=== PATIENT | female | born 1950 | race Caucasian/White ===

== ENCOUNTER 2020-09-03 23:36 | Emergency (ER) | payer MEDICARE ==
[~2020-09-03] VITALS: Ht 154.9 cm; Wt 93.9 kg
[2020-09-04] MEDS ORDERED: LEVO-T75 MCG PO (00:11)
[2020-09-04] MEDS ORDERED: ADVAIR 250-501 EACH INH (00:11)
[2020-09-04] MEDS ORDERED: INTERMEZZO3.5 MG PO (00:11)
[2020-09-04] MEDS ORDERED: OXYBUTYNIN 5 MG5 M2 PO (00:11)
[2020-09-04] MEDS ORDERED: PROAIR HFA8.5 GM INH (00:12)
[2020-09-04] MEDS ORDERED: VENLAFAXINE HCL25 MG PO (00:13)
[2020-09-04 00:34] LABS: URINE BILIRUBIN NEGATIVE (Negative); URINE BLOOD 1+ (Negative); URINE CLARITY CLEAR; URINE COLOR YELLOW; URINE GLUCOSE-RANDOM NEGATIVE (Negative); URINE KETONES NEGATIVE (Negative); URINE LEUKOCYTES-REFLEX NEGATIVE (Negative); URINE NITRITE-REFLEX NEGATIVE (Negative); URINE PROTEIN NEGATIVE (Negative); URINE UROBILINOGEN 0.2 E.U./dl (0.2-1.0)
[2020-09-04 00:51] LABS: ABSOLUTE BASOPHILS 0.1 thou/uL (0.0-0.2); ABSOLUTE EOSINOPHILS 0.4 thou/uL (0.0-0.7); ABSOLUTE LYMPHOCYTES 2.8 thou/uL (0.8-5.3); ABSOLUTE MONOCYTES 0.8 thou/uL (0.0-1.2); ABSOLUTE NEUTROPHILS 8.7 thou/uL (1.6-8.1); EOSINOPHILS 3.4 %; HEMATOCRIT 40.9 % (37.0-47.0); HEMOGLOBIN 13.3 gm/dL (12.0-15.0); LYMPHOCYTES 21.6 %; MCHC 32.5 g/dL (28.0-37.0); MCV 95.5 fL (80.0-100.0); MONOCYTES 6.1 %; MPV 7.5 fl. (7.2-11.1); NUCLEATED RBCS 0 /100WBC; PLATELET COUNT* 246 thou/uL (150-400); POLYS 67.9 %; RBC 4.28 mil/uL (4.20-5.00); RDW-CV 13.5 % (10.5-14.5); WBC 12.8 thou/uL (4.0-11.0)
[2020-09-04 00:53] LABS: CALCIUM 8.2 mg/dL (8.5-10.1); CREATININE 1.3 mg/dL (0.6-1.3); POTASSIUM 4.2 mmol/L (3.5-5.1)
[2020-09-04 00:58] LABS: ALBUMIN 3.4 g/dL (3.4-5.0); TOTAL BILIRUBIN 0.2 mg/dL (<0.1-1.0); TOTAL PROTEIN 6.8 g/dL (6.4-8.2)
[2020-09-04 01:49] LABS: CASTS None Seen /LPF (None Seen); SQUAMOUS >10 Many /LPF (0-3)
[2020-09-04 01:50] LABS: CRYSTALS None Seen /LPF (None Seen); URINE RBC None Seen /HPF (0-2); URINE WBC-REFLEX 0-5 Rare /HPF (0-5)
[2020-09-04] MEDS ORDERED: BACLOFEN 10MG T10 MG PO (04:13)
[2020-09-04] MEDS ORDERED: HYDROCODON-ACE1 EAC8 PO (04:13)
[2020-09-04 04:20] VITALS: BP 124/72
== END 2020-09-04 04:20 | disposition home or self-care (01) ==
LOC: M.ERS 23:36
PROVIDERS: Emergency Medicine
DX: M54.6 Pain in thoracic spine (principal); M54.5 Low back pain; K59.00 Constipation, unspecified; R06.02 Shortness of breath; M25.561 Pain in right knee; R10.13 Epigastric pain; J44.9 Chronic obstructive pulmonary disease, unspecified; R10.10 Upper abdominal pain, unspecified; F32.9 Major depressive disorder, single episode, unspecified; Z98.51 Tubal ligation status; Z98.890 Other specified postprocedural states; Z79.899 Other long term (current) drug therapy